=== PATIENT | female | born 1960 | race Caucasian/White ===

== ENCOUNTER 2019-01-02 02:11 | Emergency (ER) | payer MEDICARE ==
[~2019-01-02] VITALS: Ht 182.9 cm; Wt 121.4 kg
[2019-01-02] MEDS ORDERED: LEVSOD125 PO ×2 (03:06→03:07)
[2019-01-02] MEDS ORDERED: DULO60 PO (03:07)
[2019-01-02] MEDS ORDERED: AMLO5 PO (03:07)
[2019-01-02] MEDS ORDERED: FLUT1DIS2 INH (03:10)
[2019-01-02] MEDS ORDERED: Veetids 500500 MG PO (03:42)
== END 2019-01-02 04:22 | disposition home or self-care (01) ==
LOC: ER 02:11
DX: K08.89 Other specified disorders of teeth and supporting structures (principal); Z88.2 Allergy status to sulfonamides; Z79.899 Other long term (current) drug therapy; I10 Essential (primary) hypertension
CPT/HCPCS: 99282

== ENCOUNTER 2019-01-03 00:56 | Emergency (ER) | payer MEDICARE ==
[~2019-01-03] VITALS: Ht 180.3 cm; Wt 117.9 kg
[~2019-01-03 00:56] MED LIST: AMLO5 PO; DULO60 PO; FLUT1DIS2 INH; LEVSOD125 PO; Veetids 500500 MG PO
== END 2019-01-03 03:36 | disposition home or self-care (01) ==
LOC: ER 00:56
DX: S89.91XA Unspecified injury of right lower leg, initial encounter (principal); X50.9XXA Other and unspecified overexertion or strenuous movements or postures, initial encounter; Z88.2 Allergy status to sulfonamides; Z79.899 Other long term (current) drug therapy; I10 Essential (primary) hypertension
CPT/HCPCS: 29505; 73562-RT; 99283-25

== ENCOUNTER 2019-05-25 09:06 | Day surgery (SDC) | payer MEDICARE ==
[~2019-05-25] VITALS: Ht 180.3 cm; Wt 115.4 kg
[~2019-05-25 09:06] MED LIST changes: +Amlodipine-Ben1 EAC1 PO; +HYDCHL25 PO
--- NOTE | 2019-05-25 10:34 | NUR ---
05/25/19 1034 Lora Jacobs DID NOT REACH CECUM DUE TO POOR BOWEL PREP.
== END 2019-05-25 11:13 | disposition home or self-care (01) ==
LOC: ORSCSDS 09:06
PROVIDERS: Surgery
PROC: 0DBN8ZX Excision of Sigmoid Colon, Via Natural or Artificial Opening Endoscopic, Diagnostic (ICD-10-PCS; principal; 2019-05-25 10:15)
DX: Z12.11 Encounter for screening for malignant neoplasm of colon (principal); Z86.010 Personal history of colon polyps; D12.5 Benign neoplasm of sigmoid colon; I10 Essential (primary) hypertension; E78.5 Hyperlipidemia, unspecified; F32.9 Major depressive disorder, single episode, unspecified; G47.30 Sleep apnea, unspecified; E03.9 Hypothyroidism, unspecified; F41.8 Other specified anxiety disorders; J45.909 Unspecified asthma, uncomplicated; E66.01 Morbid (severe) obesity due to excess calories; Z68.35 Body mass index [BMI] 35.0-35.9, adult; Z79.899 Other long term (current) drug therapy
CPT/HCPCS: 88305; J2704; J7120

== ENCOUNTER 2019-07-14 17:52 | Emergency (ER) | payer MEDICARE ==
[~2019-07-14] VITALS: Ht 180.3 cm; Wt 117.9 kg
== END 2019-07-14 20:04 | disposition home or self-care (01) ==
LOC: ER 17:52
DX: K03.81 Cracked tooth (principal); Z88.2 Allergy status to sulfonamides; Z79.899 Other long term (current) drug therapy; I10 Essential (primary) hypertension
CPT/HCPCS: 64400; 99283-25; A9270

== ENCOUNTER → 2021-08-22 | Outpatient (CLI) | payer SELFPAY | END | disposition home or self-care (01) | LOC: LAB SHORT 18:59 | DX: N39.0 Urinary tract infection, site not specified (principal) | CPT/HCPCS: 87077; 87086; 87186 ==

== ENCOUNTER → 2025-03-04 | Outpatient (CLI) | payer MEDICARE ==
[~2025-03-04] MED LIST changes: +ALBU90OI INH; +LOSA50 PO; +SPIR25 PO
== END ==
LOC: LAB 16:13 → LAB SHORT 16:13
DX: N39.0 Urinary tract infection, site not specified (principal)
CPT/HCPCS: 87077; 87086; 87186